=== PATIENT | male | born 1960 | race Caucasian/White ===

== ENCOUNTER 2020-06-30 14:42 | Emergency (ER) | payer OTHER ==
[~2020-06-30] VITALS: Ht 175.3 cm; Wt 86.4 kg
[2020-06-30 17:02] VITALS: BP 114/65
== END 2020-06-30 18:02 | disposition left against medical advice (07) ==
LOC: EMS 14:48
DX: R07.89 Other chest pain (principal); F32.9 Major depressive disorder, single episode, unspecified; F17.210 Nicotine dependence, cigarettes, uncomplicated; F12.90 Cannabis use, unspecified, uncomplicated
CPT/HCPCS: 71045; 93005; 99284; 99285

== ENCOUNTER 2020-06-30 21:19 | Emergency (ER) | payer OTHER ==
[~2020-06-30] VITALS: Ht 176.5 cm; Wt 88.6 kg
[2020-07-01] MEDS ORDERED: IBUPROFEN 800 MG TABLET PO ONE (00:45)
[2020-07-01 01:50] VITALS: BP 128/79
== END 2020-07-01 02:08 | disposition home or self-care (01) ==
LOC: EMS 21:19
DX: S90.822A Blister (nonthermal), left foot, initial encounter (principal); F41.9 Anxiety disorder, unspecified; F32.9 Major depressive disorder, single episode, unspecified; F17.210 Nicotine dependence, cigarettes, uncomplicated; F12.90 Cannabis use, unspecified, uncomplicated; W22.8XXA Striking against or struck by other objects, initial encounter; Y93.89 Activity, other specified; Y92.89 Other specified places as the place of occurrence of the external cause; Y99.8 Other external cause status
CPT/HCPCS: 99283

== ENCOUNTER 2021-02-02 00:09 | Emergency (ER) | payer OTHER | END 2021-02-02 02:40 | disposition home or self-care (01) | LOC: EMS 00:10 | DX: M79.89 Other specified soft tissue disorders (principal); F32.9 Major depressive disorder, single episode, unspecified; F41.9 Anxiety disorder, unspecified; F12.90 Cannabis use, unspecified, uncomplicated; F17.210 Nicotine dependence, cigarettes, uncomplicated; Z59.00 Homelessness unspecified | CPT/HCPCS: 99283; Z7502 ==

== ENCOUNTER 2021-11-04 10:55 | Emergency (ER) | payer OTHER ==
[~2021-11-04] VITALS: Ht 165.1 cm; Wt 65.9 kg
[2021-11-04] MEDS ORDERED: IBUPROFEN 800 MG TABLET PO ONE (11:30)
[2021-11-04 13:11] VITALS: BP 122/65
== END 2021-11-04 15:30 | disposition home or self-care (01) ==
LOC: EMS 10:55
DX: S82.831A Other fracture of upper and lower end of right fibula, initial encounter for closed fracture (principal); S69.92XA Unspecified injury of left wrist, hand and finger(s), initial encounter; S99.911A Unspecified injury of right ankle, initial encounter; F41.9 Anxiety disorder, unspecified; M19.90 Unspecified osteoarthritis, unspecified site; F32.A Depression, unspecified; F17.210 Nicotine dependence, cigarettes, uncomplicated; F12.90 Cannabis use, unspecified, uncomplicated; Z88.8 Allergy status to other drugs, medicaments and biological substances; Z87.39 Personal history of other diseases of the musculoskeletal system and connective tissue; W05.0XXA Fall from non-moving wheelchair, initial encounter; Y93.89 Activity, other specified; Y92.89 Other specified places as the place of occurrence of the external cause; Y99.8 Other external cause status
CPT/HCPCS: 73502; 99284

== ENCOUNTER 2022-10-11 16:51 | Emergency (ER) | payer OTHER ==
[~2022-10-11] VITALS: Ht 172.7 cm; Wt 72.2 kg
[~2022-10-11 16:51] MED LIST: PERM60CR19 TP
[2022-10-11 19:42] VITALS: BP 129/73; PULSE 77; RESP 16; TEMP 97.3
== END 2022-10-11 20:36 | disposition home or self-care (01) ==
LOC: EMS 16:52
DX: R46.89 Other symptoms and signs involving appearance and behavior (principal); Z59.00 Homelessness unspecified; Z88.5 Allergy status to narcotic agent; Z79.899 Other long term (current) drug therapy
CPT/HCPCS: 99283; Z7502

== ENCOUNTER 2024-04-18 14:06 | Emergency (ER) | payer MEDICARE, OTHER ==
[~2024-04-18] VITALS: Ht 165.1 cm; Wt 72.7 kg
[~2024-04-18 14:06] MED LIST changes: +DIVA-112 PO; -PERM60CR19 TP; +RISP-32 PO
[2024-04-18 15:09] VITALS: TEMP 98.2
[2024-04-18] MEDS: IBUPROFEN 400 MG TABLET PO ONE (18:24)
[2024-04-18] MEDS: ACETAMINOPHEN 500 MG TABLET PO ONE (18:25)
[2024-04-18 19:47] VITALS: BP 134/79; PULSE 75; RESP 16; O2SAT 98
[2024-04-19] MEDS ORDERED: PRED-554 PO (10:52)
== END 2024-04-18 20:33 | disposition home or self-care (01) ==
LOC: EMS 14:06
DX: G89.29 Other chronic pain (principal); M79.672 Pain in left foot; F41.9 Anxiety disorder, unspecified; F32.A Depression, unspecified; F17.210 Nicotine dependence, cigarettes, uncomplicated; F12.90 Cannabis use, unspecified, uncomplicated; Z79.899 Other long term (current) drug therapy; Z98.890 Other specified postprocedural states
CPT/HCPCS: 99283

== ENCOUNTER 2024-04-19 09:45 | Emergency (ER) | payer MEDICARE, OTHER ==
[~2024-04-19] VITALS: Ht 172.7 cm; Wt 72.7 kg
[2024-04-19 09:51] VITALS: BP 138/85; PULSE 80; RESP 16; TEMP 98.2; O2SAT 97
[2024-04-19] MEDS: TraMADol HCL 50 MG TABLET PO ONE (10:32)
[2024-04-19] MEDS: PredniSONE 20 MG TABLET PO ONE (10:32)
[2024-04-19] MEDS ORDERED: PRED-554 PO (10:52)
== END 2024-04-19 11:25 | disposition home or self-care (01) ==
LOC: EMS 09:54
DX: M19.90 Unspecified osteoarthritis, unspecified site (principal); M79.673 Pain in unspecified foot; F41.9 Anxiety disorder, unspecified; F17.210 Nicotine dependence, cigarettes, uncomplicated; F12.90 Cannabis use, unspecified, uncomplicated; G89.29 Other chronic pain; F32.A Depression, unspecified; Z79.899 Other long term (current) drug therapy
CPT/HCPCS: 99283; J7512

== ENCOUNTER → 2024-04-20 | Emergency (ER) | payer MEDICARE, OTHER ==
[~2024-04-20] VITALS: Ht 175.3 cm; Wt 73.0 kg
[~2024-04-20] MED LIST changes: +PRED-554 PO
[2024-04-20 13:21] VITALS: TEMP 98.2
[2024-04-20 14:39] VITALS: BP 105/62; PULSE 88; RESP 18; O2SAT 98
== END | disposition home or self-care (01) ==
LOC: EMS 13:34
DX: R04.0 Epistaxis (principal); R42 Dizziness and giddiness; F12.90 Cannabis use, unspecified, uncomplicated; F17.210 Nicotine dependence, cigarettes, uncomplicated; Z79.52 Long term (current) use of systemic steroids; Z88.8 Allergy status to other drugs, medicaments and biological substances; Z79.899 Other long term (current) drug therapy
CPT/HCPCS: 99283; Z7502

== ENCOUNTER 2024-04-21 08:20 | Emergency (ER) | payer MEDICARE, OTHER ==
[~2024-04-21] VITALS: Ht 175.3 cm; Wt 72.7 kg
[2024-04-21 08:30] VITALS: BP 133/77; PULSE 80; RESP 19; TEMP 98.3; O2SAT 99
== END 2024-04-21 10:27 | disposition home or self-care (01) ==
LOC: EMS 08:33
DX: F25.9 Schizoaffective disorder, unspecified (principal); F41.9 Anxiety disorder, unspecified; M54.6 Pain in thoracic spine; M19.90 Unspecified osteoarthritis, unspecified site; F32.A Depression, unspecified; F17.210 Nicotine dependence, cigarettes, uncomplicated; F12.90 Cannabis use, unspecified, uncomplicated; Z59.00 Homelessness unspecified; Z76.5 Malingerer [conscious simulation]; Z79.52 Long term (current) use of systemic steroids; Z79.899 Other long term (current) drug therapy
CPT/HCPCS: 99281; Z7502

== ENCOUNTER 2024-05-09 17:29 | Emergency (ER) | payer MEDICARE, OTHER ==
[~2024-05-09] VITALS: Ht 172.7 cm; Wt 176.0 kg
[2024-05-09 17:35] VITALS: BP 114/68; PULSE 78; RESP 16; TEMP 98; O2SAT 98
== END 2024-05-09 20:42 | disposition home or self-care (01) ==
LOC: EMS 17:29
DX: F25.9 Schizoaffective disorder, unspecified (principal); F12.90 Cannabis use, unspecified, uncomplicated; Z79.52 Long term (current) use of systemic steroids; Z59.00 Homelessness unspecified; Z79.899 Other long term (current) drug therapy
CPT/HCPCS: 99283; Z7502

== ENCOUNTER 2024-06-11 08:50 | Emergency (ER) | payer MEDICARE, OTHER ==
[~2024-06-11] VITALS: Ht 172.7 cm; Wt 80.0 kg
[2024-06-11 09:35] VITALS: BP 103/78; PULSE 72; RESP 15; TEMP 98.3; O2SAT 100
[2024-06-11] MEDS: IBUPROFEN 600 MG TABLET PO ONE (09:41)
[2024-06-11] MEDS ORDERED: IBUP-1492 PO (10:35)
== END 2024-06-11 10:38 | disposition home or self-care (01) ==
LOC: EMS 08:50
DX: G89.29 Other chronic pain (principal); M79.672 Pain in left foot; F25.9 Schizoaffective disorder, unspecified; F12.90 Cannabis use, unspecified, uncomplicated; F17.210 Nicotine dependence, cigarettes, uncomplicated; Z88.8 Allergy status to other drugs, medicaments and biological substances; Z79.52 Long term (current) use of systemic steroids; Z79.899 Other long term (current) drug therapy
CPT/HCPCS: 99283

== ENCOUNTER 2024-06-12 13:40 | Emergency (ER) | payer MEDICARE, OTHER ==
[~2024-06-12] VITALS: Ht 172.7 cm; Wt 75.0 kg
[~2024-06-12 13:40] MED LIST changes: +IBUP-1492 PO
[2024-06-12 13:41] VITALS: TEMP 98.2
[2024-06-12 18:20] VITALS: BP 117/68; PULSE 71; RESP 18; O2SAT 98
== END 2024-06-12 20:47 | disposition home or self-care (01) ==
LOC: EMS 13:57
DX: S90.02XA Contusion of left ankle, initial encounter (principal); M19.072 Primary osteoarthritis, left ankle and foot; M25.572 Pain in left ankle and joints of left foot; F12.90 Cannabis use, unspecified, uncomplicated; F41.9 Anxiety disorder, unspecified; F32.A Depression, unspecified; F17.210 Nicotine dependence, cigarettes, uncomplicated; Z88.5 Allergy status to narcotic agent; Z79.899 Other long term (current) drug therapy; Z79.52 Long term (current) use of systemic steroids; V09.9XXA Pedestrian injured in unspecified transport accident, initial encounter; Y93.89 Activity, other specified; Y92.89 Other specified places as the place of occurrence of the external cause; Y99.8 Other external cause status
CPT/HCPCS: 99284

== ENCOUNTER 2024-06-13 20:20 | Emergency (ER) | payer MEDICARE, OTHER ==
[~2024-06-13] VITALS: Ht 177.8 cm; Wt 86.4 kg
[2024-06-13 20:39] VITALS: BP 115/69; PULSE 74; RESP 18; TEMP 97.6; O2SAT 100
== END 2024-06-13 23:58 | disposition left against medical advice (07) ==
LOC: EMS 20:42
DX: M25.571 Pain in right ankle and joints of right foot (principal); M25.572 Pain in left ankle and joints of left foot; Z53.21 Procedure and treatment not carried out due to patient leaving prior to being seen by health care provider

== ENCOUNTER 2024-06-14 17:53 | Emergency (ER) | payer MEDICARE, OTHER | END 2024-06-14 20:09 | disposition left against medical advice (07) | LOC: EMS 17:53 | DX: M79.671 Pain in right foot (principal); M79.672 Pain in left foot; Z53.21 Procedure and treatment not carried out due to patient leaving prior to being seen by health care provider; Z88.5 Allergy status to narcotic agent ==

== ENCOUNTER 2024-10-18 12:29 | Emergency (ER) | payer MEDICARE, MEDICAID ==
[~2024-10-18] VITALS: Ht 170.2 cm; Wt 70.6 kg
[2024-10-18 12:35] VITALS: TEMP 98.5
[2024-10-18 14:21] LABS: APPEARANCE,URINE CLEAR (CLEAR); GLUCOSE, URINE (UA) NEGATIVE (NEGATIVE); LEUKOCYTE ESTERASE ,URINE LARGE (NEGATIVE); NITRATE,URINE NEGATIVE (NEGATIVE); OCCULT BLOOD,URINE NEGATIVE (NEGATIVE); SPECIFIC GRAVITIY, URINE 1.010 (1.003-1.030)
[2024-10-18 14:36] LABS: SQUAMOUS EPITHELIAL CELL,UR Few /LPF (None Seen)
[2024-10-18 16:51] VITALS: BP 118/70; PULSE 79; RESP 16; O2SAT 98
== END 2024-10-18 17:21 | disposition home or self-care (01) ==
LOC: EMS 12:30
DX: F10.129 Alcohol abuse with intoxication, unspecified (principal); M19.90 Unspecified osteoarthritis, unspecified site; F32.A Depression, unspecified; F41.9 Anxiety disorder, unspecified; F12.90 Cannabis use, unspecified, uncomplicated; F17.210 Nicotine dependence, cigarettes, uncomplicated; Z88.5 Allergy status to narcotic agent; Z79.52 Long term (current) use of systemic steroids; Z59.00 Homelessness unspecified; Z98.890 Other specified postprocedural states; Z79.899 Other long term (current) drug therapy; Y90.9 Presence of alcohol in blood, level not specified
CPT/HCPCS: 81001; 87086; 99283